=== PATIENT | female | born 1990 | race Caucasian/White ===

== ENCOUNTER 2016-12-11 04:12 | Emergency (ER) | payer BC ==
[2016-12-11 04:18] VITALS: TEMP 97.9
[2016-12-11] MEDS ORDERED: LORazepam 2 MG/ML INJ IVP ONE (04:29)
--- NOTE | 2016-12-11 04:49 | EDPHY ---
H & P Stated Complaint: Alcohol withdrawals. Last drink 1999 last night. hx alcoholism Time Seen by Provider: 12/11/16 04:22 HPI/ROS: HPI The patient presents with concern for alcohol withdrawal. She is complaining of tremors, feeling of restlessness, difficulty walking which has been present for the last several hours. She has been on a 3 day drinking binge drinking large amounts of wine and whiskey. Her last drink was at 8:00 p.m. last night. She awoke feeling this way. She has a history of alcohol withdrawal as well as alcohol withdrawal seizures, though also has a history of epilepsy. She says she has been taking her Keppra as prescribed. She has previously been to rehab and has a plan to start a program tomorrow. She thinks this is part of the reason that she started drinking again because she knew she would want to be sober for her program. She denies any suicidal or homicidal ideations. REVIEW OF SYSTEMS Constitutional: No fever, no chills. Eyes: No discharge. ENT: No sore throat. Cardiovascular: No chest pain, no palpitations. Respiratory: No cough, no shortness of breath. Gastrointestinal: No abdominal pain, no vomiting. Genitourinary: No hematuria. Musculoskeletal: No back pain. Skin: No rashes. Neurological: No headache. PMHx: Epilepsy, depression Soc Hx: Alcohol abuse, lives in [place] PHYSICAL General Appearance: Alert, no distress Eyes: Pupils equal and round no pallor or injection ENT, Mouth: Mucous membranes moist Respiratory: There are no retractions, lungs are clear to auscultation Cardiovascular: Regular rate and rhythm Gastrointestinal: Abdomen is soft and non-tender, no masses, bowel sounds normal Neurological: A&O, moves all extremities, fine tremor of her hands Skin: Warm and dry, no rashes Musculoskeletal: Neck is supple non tender Extremities: symmetrical, full range of motion Psychiatric: Patient is oriented X 3, there is no agitation Source: Patient - Personal History LMP (Females 10-55): 8-14 Days Ago Current Tetanus/Diphtheria Vaccine: Unsure Current Tetanus Diphtheria and Acellular Pertussis (TDAP): Unsure - Medical/Surgical History Hx Asthma: No Hx Chronic Respiratory Disease: No Hx Diabetes: No Hx Cardiac Disease: No Hx Cirrhosis: No Hx Alcoholism: Yes Hx HIV/AIDS: No Hx Splenectomy or Spleen Trauma: No Other PMH: epilepsy, alcoholism, liver damage - Social History Smoking Status: Never smoked Constitutional: Initial Vital Signs Temperature (C) 36.6 C 12/11/16 04:12 Heart Rate 76 12/11/16 04:12 Respiratory Rate 18 12/11/16 04:12 Blood Pressure 132/86 H 12/11/16 04:12 O2 Sat (%) 94 12/11/16 04:12 O2 Delivery Mode Room Air Allergies/Adverse Reactions: No Known Allergies Allergy (Unverified 12/11/16 04:18) Home Medications: Medication Instructions Recorded FOLIC ACID 12/11/16 Keppra 12/11/16 Zoloft 100mg (*) 12/11/16 Medical Decision Making ED Course/Re-evaluation: The patient received the dose of Ativan 1 mg IV with complete resolution in her symptoms. She now feels quite sleepy. Her vital signs remained stable. She has plan for follow-up today at a program called [facility] for rehab. She is committed to not drinking. I have given her prescription for Librium and have instructed her that she cannot drink alcohol with this. She will be discharged from the emergency room. I do not feel she is at risk for any seizures. Differential Diagnosis: This is a 26-year-old female who presents from home with concern for alcohol withdrawal after a 3 day drinking binge, last drink at approximately 8:00 p.m. last night. On arrival, her vital signs are normal, however she is feeling anxious and tremulous on exam. Differential diagnosis includes alcohol withdrawal, anxiety attack, substance abuse. Plan for treatment with Ativan here and we will observe her. - Data Points Medications Given: Discontinued Medications Chlordiazepoxide (Librium 25 Mg Prepack#6) 1 btl TAKEHOME EDNOW ONE Stop: 12/11/16 05:31 Last Admin: 12/11/16 05:34 Dose: 1 btl Lorazepam (Ativan Injection) 1 mg IVP EDNOW ONE Stop: 12/11/16 04:30 Last Admin: 12/11/16 04:41 Dose: 1 mg Departure - Departure Disposition: Home, Routine, Self-Care Clinical Impression: Alcohol withdrawal Qualifiers: Complication of substance-induced condition: uncomplicated Qualified Code(s): F10.230 - Alcohol dependence with withdrawal, uncomplicated Condition: Good Instructions: Alcohol Withdrawal (ED) Additional Instructions: Please return to the emergency room if your worse in any way. Referrals: NONE *PRIMARY CARE P,. [Primary Care Provider] - As per Instructions
[2016-12-11] MEDS ORDERED: CHLORDIAZEPOXIDE 25MG PREPK#6 BTL TAKEHOME ONE (05:30)
[2016-12-11 05:32] VITALS: BP 132/71; PULSE 69; RESP 16; O2SAT 96
== END 2016-12-11 05:39 | disposition home or self-care (01) ==
DX: F10.230 Alcohol dependence with withdrawal, uncomplicated (principal)
CPT/HCPCS: 96374; J2060